=== PATIENT | female | born 2000 | race Caucasian/White ===

== ENCOUNTER 2024-06-23 08:48 | Emergency (ER) | payer OTHER ==
[~2024-06-23] VITALS: Ht 160 cm; Wt 75.0 kg
[2024-06-23 08:51] VITALS: TEMP 97.8
[2024-06-23] MEDS ORDERED: CEPHALEXIN500 M1 PO (09:22)
[2024-06-23 09:38] VITALS: BP 125/75; PULSE 68
== END 2024-06-23 09:43 | disposition home or self-care (01) ==
LOC: COL.EMP 08:48 → COL.ER 08:48 → COL.EMP 09:43
DX: S51.811A Laceration without foreign body of right forearm, initial encounter (principal); W26.0XXA Contact with knife, initial encounter; Y92.89 Other specified places as the place of occurrence of the external cause; Y99.0 Civilian activity done for income or pay

== ENCOUNTER 2024-06-23 09:05 | Outpatient (RCR) | payer OTHER ==
[2024-06-23] MEDS ORDERED: CEPHALEXIN500 M1 PO (09:22)
[2024-06-23 10:29] LABS: HIV 1/2 Antibodies Non-Reactive; HIV-1p24 Antigen Non-Reactive
[2024-06-23 21:49] LABS: HEPATITIS B SURFACE ANTIBODY 29.5 (()); HEPATITIS C VIRUS ANTIBODY Negative (Nonreactiv)
== END 2024-07-04 ==
LOC: COL.EMP → CANPREER
PROVIDERS: Family Medicine
DX: Z77.21 Contact with and (suspected) exposure to potentially hazardous body fluids (principal)